=== PATIENT | female | born 1960 | race African-American/Black ===

== ENCOUNTER 2020-03-05 20:22 | Inpatient (IN) | payer MEDICARE, MEDICAID ==
[~2020-03-05] VITALS: Ht 165.1 cm; Wt 83.6 kg
--- NOTE | 2020-03-05 20:49 | PHYS DOC ---
General Adult HPI: HPI: Patient is a 59 year old [f__sex] who presents with [] Review of Systems: Review of Systems: Constitutional: Denies fever or chills. [] Eyes: Denies change in visual acuity. [] HENT: Denies nasal congestion or sore throat. [] Respiratory: Denies cough or shortness of breath. [] Cardiovascular: Denies chest pain or edema. [] GI: Denies abdominal pain, nausea, vomiting, bloody stools or diarrhea. [] : Denies dysuria. [] Musculoskeletal: Denies back pain or joint pain. [] Integument: Denies rash. [] Neurologic: Denies headache, focal weakness or sensory changes. [] Endocrine: Denies polyuria or polydipsia. [] Lymphatic: Denies swollen glands. [] Psychiatric: Denies depression or anxiety. [] Heart Score: Risk Factors: Risk Factors: DM, Current or recent (<one month) smoker, HTN, HLP, family history of CAD, obesity. Risk Scores: Score 0 - 3: 2.5% MACE over next 6 weeks - Discharge Home Score 4 - 6: 20.3% MACE over next 6 weeks - Admit for Clinical Observation Score 7 - 10: 72.7% MACE over next 6 weeks - Early Invasive Strategies Physical Exam: PE: Constitutional: Well developed, well nourished, no acute distress, non-toxic appearance. [] HENT: Normocephalic, atraumatic, bilateral external ears normal, oropharynx moist, no oral exudates, nose normal. [] Eyes: PERRLA, EOMI, conjunctiva normal, no discharge. [] Neck: Normal range of motion, no tenderness, supple, no stridor. [] Cardiovascular:Heart rate regular rhythm, no murmur [] Lungs & Thorax: Bilateral breath sounds clear to auscultation [] Abdomen: Bowel sounds normal, soft, no tenderness, no masses, no pulsatile masses. [] Skin: Warm, dry, no erythema, no rash. [] Back: No tenderness, no CVA tenderness. [] Extremities: No tenderness, no cyanosis, no clubbing, ROM intact, no edema. [] Neurologic: Alert and oriented X 3, normal motor function, normal sensory function, no focal deficits noted. [] Psychologic: Affect normal, judgement normal, mood normal. [] EKG: EKG: @ 2033 Normal sinus rhythm at [address] elevation or depression Normal T wave morphology QRS 80 ms QT 360 ms QTc 429 ms Radiology/Procedures: Radiology/Procedures: [] Course & Med Decision Making: Course & Med Decision Making Pertinent Labs and Imaging studies reviewed. (See chart for details) [] Dragon Disclaimer: Dragon Disclaimer: This electronic medical record was generated, in whole or in part, using a voice recognition dictation system. PREM SINGLETON DO Mar 05, 2020 20:49
[2020-03-05] MEDS ORDERED: DEXTROSE 50% 25 GM / 50ML DISP.SYRIN. IV PRN (21:45)
[2020-03-05] MEDS ORDERED: cloNIDine TTS-2 1 PATCH PATCH TD ONE (22:00)
--- NOTE | 2020-03-06 00:12 | RAD ---
EXAM: CHEST AP ONLY 03/05/2020 12:00 AM CLINICAL INDICATION: Cough COMPARISON: Chest radiograph 01/27/2020 TECHNIQUE: AP upright view of the chest FINDINGS: The cardiomediastinal silhouette is unchanged. A vascular stent is in the right subclavian region. The left hemidiaphragm is elevated, new from prior exam. No consolidation, pleural effusion, or pneumothorax. Pulmonary vascularity is normal. The thoracic skeleton is intact. IMPRESSION: No acute cardiopulmonary abnormality. Elevated left hemidiaphragm of unclear etiology. Electronically signed by: Lindsay Ospina MD (03/06/2020 12:10 AM) [id number]
[2020-03-06] MEDS ORDERED: cloNIDine HCL 0.1 MG TABLET PO ONE (03:30)
[2020-03-06] MEDS: INSULIN LISPRO 300 UNITS/3 ML VIAL. SQ SCH ×3 (09:23→17:00)
[2020-03-06] MEDS ORDERED: IV NORMAL SALINE 1000ML BAG 1,000 ML IV PRN ×2 (09:47)
[2020-03-06] MEDS ORDERED: DIALYSIS PATIENT. MC PRN ×2 (10:00)
[2020-03-06] MEDS ORDERED: ALBUMIN HUMAN 25% 200 ML IV PRN (10:00)
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
[2020-03-06] MEDS ORDERED: BISACODYL 10 MG SUPP.RECT. PR PRN (13:15)
[2020-03-06] MEDS ORDERED: ACETAMINOPHEN 325 MG TABLET. PO PRN (13:15)
[2020-03-06] MEDS ORDERED: ZOLPIDEM 5 MG TABLET. PO PRN (13:15)
[2020-03-06] MEDS ORDERED: MAGNESIUM HYDROXIDE 2,400 MG/30 ML ORAL.SUSP. PO PRN (13:15)
--- NOTE | 2020-03-06 13:15 | PDOC1 ---
History and Physical Date of Admission Date of Admission DATE: 03/06/20 TIME: 13:03 Identification/Chief Complaint Chief Complaint Refusing dialysis Source Source: Chart review, Patient History of Present Illness History of Present Illness Patient 59-year-old female with past medical history of end-stage renal disease on hemodialysis, who presents from her shelter because she has been refusing hemodialysis over the past 10 days. Patient is largely noncompliant and a poor historian, and much of the history was obtained from patient's daughter and chart review. Per patient's daughter, she is a resident of [facility], and then for the past 10 days patient has been refusing food, COVID testing, medication, and hemodialysis. She was sent to the ER for further evaluation. Upon arrival in the ER she continued to refuse our efforts to care for her, and including refusing blood draws. Upon evaluation the patient I did get her to agree to hemodialysis, but she states she wants to have dialysis "on her own terms ". After discussion with patient's daughter, patient's daughter confirms that patient has her own medical decision-making capacity. Upon discussion with ER staff and chart review, patient was recently treated at [facility] where she was again refusing hemodialysis. Further history cannot be obtained due to not cooperative patient. Past Medical History Past Medical History Unable to obtain due to uncooperative patient Past Surgical History Past Surgical History Unable to obtain due to uncooperative patient Family History Family History Unable to obtain due to uncooperative patient Social History Drugs: Other (Unable to obtain due to uncooperative patient) Current Medications Current Medications Current Medications Clonidine HCl (Catapres Tts-2) 1 patch 1X ONCE TD Last administered on 03/05/20at 21:47; Start 03/05/20 at 22:00; Stop 03/05/20 at 22:01; Status DC Insulin Human Lispro (HumaLOG) 0-5 UNITS TIDWMEALS SQ ; Start 03/06/20 at 08:00 Dextrose (Dextrose 50%-Water Syringe) 12.5 gm PRN Q15MIN PRN IV SEE COMMENTS; Start 03/05/20 at 21:45 Clonidine HCl (Catapres) 0.1 mg 1X ONCE PO Last administered on 03/06/20at 03:19; Start 03/06/20 at 03:30; Stop 03/06/20 at 03:31; Status DC Sodium Chloride 1,000 ml @ 1,000 mls/hr Q1H PRN IV hypotension; Start 03/06/20 at 09:47; Stop 03/06/20 at 15:46 Albumin Human 200 ml @ 200 mls/hr 1X PRN PRN IV Hypotension; Start 03/06/20 at 10:00; Stop 03/06/20 at 15:59 Sodium Chloride 1,000 ml @ 400 mls/hr Q2H30M PRN IV PATENCY; Start 03/06/20 at 09:47; Stop 03/06/20 at 21:46 Info (PHARMACY MONITORING -- do not chart) 1 each PRN DAILY PRN MC SEE COMMENTS; Start 03/06/20 at 10:00 Info (PHARMACY MONITORING -- do not chart) 1 each PRN DAILY PRN MC SEE COMMENTS; Start 03/06/20 at 10:00 Allergies Allergies: Coded Allergies: Sulfa (Sulfonamide Antibiotics) (Verified Allergy, Intermediate, 03/05/20) baclofen (Verified Allergy, Intermediate, 03/05/20) morphine (Verified Allergy, Intermediate, 03/05/20) ROS Review of System Unable to obtain due to uncooperative patient Physical Exam Physical Exam General: Alert, uncooperative, no acute distress HEENT: PERRLA, EOMI Lungs: Clear to auscultation, Normal air movement Heart: RRR, no murmurs Cardiovascular: S1, S2 Abdomen: Normal bowel sounds, Soft, No tenderness Extremities: No clubbing, No cyanosis Skin: No rashes, No significant lesion Neuro: Normal speech, Normal tone, Sensation intact Psych/Mental Status: Mental status NL, Mood NL Vitals Vitals Vital Signs Date Time Temp Pulse Resp B/P (MAP) Pulse Ox O2 Delivery O2 Flow Rate FiO2 03/06/20 07:52 85 16 95 03/06/20 03:19 219/156 03/05/20 20:22 Room Air Images Images EXAM: CHEST AP ONLY 03/05/2020 12:00 AM CLINICAL INDICATION: Cough COMPARISON: Chest radiograph 01/27/2020 TECHNIQUE: AP upright view of the chest FINDINGS: The cardiomediastinal silhouette is unchanged. A vascular stent is in the right subclavian region. The left hemidiaphragm is elevated, new from prior exam. No consolidation, pleural effusion, or pneumothorax. Pulmonary vascularity is normal. The thoracic skeleton is intact. IMPRESSION: No acute cardiopulmonary abnormality. Elevated left hemidiaphragm of unclear etiology. VTE Prophylaxis Ordered VTE Prophylaxis Devices: Yes VTE Pharmacological Prophylaxi: No Assessment/Plan Assessment/Plan End-stage renal disease on hemodialysis Patient noncompliance Plan: Consultation placed to nephrology. I have made several attempts to convince patient to proceed with hemodialysis, but she remains uncooperative and refusing all medical treatment. I discussed with patient's daughter who will call patient and attempt to convince her to allow us to proceed with medical treatment. Patient continues to be uncooperative and refusing medical treatment and blood draws, that I cannot effectively evaluate patient. Will consult psychiatry due to lack of insight and poor decision-making. FEN - renal diet PPX - Heparin FULL CODE Dispo - inpatient for above Justifications for Admission Other Justification ARIEL SINGLETARY MD Mar 06, 2020 13:15
[2020-03-06 14:44] VITALS: BP 192/74
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
--- NOTE | 2020-03-06 16:42 | PDOC1 ---
History & Psych Evaluation Date of Service: DOS: DATE: 03/06/20 TIME: 16:42 Source: Source: Caregiver, Chart review, Patient Identification: Identification She is a 59-year-old -[place]ian female with end-stage renal failure, on dialysis Chief Complaint: Chief Complaint Confusion, refusing for treatment and dialysis History of Present Illness: HPI: She is a 59-year-old -[place]ian female with end-stage renal disease on dialysis seen for initial psychiatric assessment. She is a resident of [facility] where she has been reportedly refusing for medications, COVID testing, food, and dialysis. She was sent to ER for assessment. She continues to be refusing for treatment, dialysis as recommended by physicians. Reportedly, she has refusing for treatment for the past 10 days. According to the chart review and discussion with nursing staff, patient has its own decision making capacity. She does not have any guardian or DURABLE POWER OF VISITOR SERVICES TECHNICIAN. She has a daughter and brother. Brother also came to hospital and tried to convince patient however patient refused. When seen, she appears irritable, angry, uncooperative, and difficult to engage in conversation. She was resistant to psychological exploration. Stating, she wants dialysis but her own terms whenever she wanted. She would not provide any reasonable rationale for refusing treatment and dialysis. When she was informed regarding the risks, benefits of dialysis, she appears to be refusing and not accepting. She was not able to verbalize back risk benefits. Apparently, she does not have any insight to her medical condition and situation. Denies depression or anxiety. Denies suicidal or homicidal thoughts. Denies auditory or visual hallucinations. Mental status is confused and disoriented, refused to participate in mental status examination and did not answer questions Past Psychiatric History: Past psychiatric history is not available due to patient factor. Patient is quite uncooperative. Past Medical History: Please see medical chart for details Family History: Family history is not available due to patient factor. Social History: Social History: She is a resident of [facility]. Further history is not available due to patient factor. Current Medications: Current Medications Current Medications Medications (Trade) Dose Ordered Sig/Marga Start Time Stop Time Status Last Admin Dose Admin Acetaminophen (Tylenol) 650 mg PRN Q6HRS PRN 03/06/20 13:15 Albumin Human 200 ml @ 200 mls/hr 1X PRN PRN 03/06/20 10:00 03/06/20 15:59 DC Bisacodyl (Dulcolax Supp) 10 mg PRN DAILY PRN 03/06/20 13:15 Clonidine HCl (Catapres Tts-2) 1 patch 1X ONCE 03/05/20 22:00 03/05/20 22:01 DC 03/05/20 21:47 1 PATCH Clonidine HCl (Catapres) 0.1 mg 1X ONCE 03/06/20 03:30 03/06/20 03:31 DC 03/06/20 03:19 0.1 MG Dextrose (Dextrose 50%-Water Syringe) 12.5 gm PRN Q15MIN PRN 03/05/20 21:45 Heparin Sodium (Porcine) (Heparin Sodium) 5,000 unit Q8HRS 03/06/20 22:00 Info (PHARMACY MONITORING -- do not chart) 1 each PRN DAILY PRN 03/06/20 10:00 Insulin Human Lispro (HumaLOG) 0-5 UNITS TIDWMEALS 03/06/20 08:00 Magnesium Hydroxide (Milk Of Magnesia) 2,400 mg PRN Q12HR PRN 03/06/20 13:15 Sodium Chloride 1,000 ml @ 400 mls/hr Q2H30M PRN 03/06/20 09:47 03/06/20 21:46 Zolpidem Tartrate (Ambien) 5 mg PRN QHS PRN 03/06/20 13:15 Allergies: Allergies: Coded Allergies: Sulfa (Sulfonamide Antibiotics) (Verified Allergy, Intermediate, 03/05/20) baclofen (Verified Allergy, Intermediate, 03/05/20) morphine (Verified Allergy, Intermediate, 03/05/20) Mental Status Examination: Mental Status Examination 59-year-old -Mal[place]ian female Irritable, uncooperative Disoriented Thought process disorganized Denies suicidal or homicidal thoughts Denies auditory or visual hallucinations No abnormal perception noted Mood is irritable Affect is dysthymic Insight is poor Judgment is poor Impulse control is poor Attention span and concentration impaired Recent and remote memory and impaired ROS: 14 point review of system is otherwise negative except for stated above Physical Exam: Refer to Physician's note. ACTIVATED SLUDGE ATTENDANT: No focal deficit MSK: No EPS, TDK, or abnormal involuntary movements Vitals: Vitals Vital Signs Date Time Temp Pulse Resp B/P (MAP) Pulse Ox O2 Delivery O2 Flow Rate FiO2 03/06/20 14:44 192/74 (113) 03/06/20 07:52 85 16 95 03/05/20 20:22 Room Air Diagnosis: Diagnosis: Acute delirium, likely multifactorial, hypoactive/hyperactive type. Uremic encephalopathy Patient is incapacitated to make clinical decisions. Assessment: -[place]ian female who appears to be in delirium, likely to uremia, lacks capacity to make critical decisions regarding her health care. During assessment she has not been able to show understanding of risks, benefits, alternatives of the treatment. She was not able to provide understanding of her refusal for treatment, rationale, or alternatives that she might be thinking of. Given her impaired attention, concentration, disorientation, her cognitive process appears to be impaired limiting her capacity to make reasonable decision. Plan: Haldol 2.5 mg every 6 hours for agitation and confusion. Monitor for confusion and agitation. Monitor for safety. Patient needs to be reassessed for capacity as capacity is fluctuating process. ROSALINO BURR MD Mar 06, 2020 16:42
[2020-03-06] MEDS ORDERED: ALLO100T PO (18:40)
[2020-03-06] MEDS ORDERED: HYDR100T24 PO (18:40)
[2020-03-06] MEDS ORDERED: ASPI-630 PO (18:40)
[2020-03-06] MEDS ORDERED: ATOR40TA59 PO (18:40)
[2020-03-06] MEDS ORDERED: FURO80TA3 PO (18:40)
[2020-03-06] MEDS ORDERED: OXYC5CAP PO (18:40)
[2020-03-06] MEDS ORDERED: ERGO500027 PO (18:40)
[2020-03-06] MEDS ORDERED: PANT40TA77 PO (18:40)
[2020-03-06] MEDS ORDERED: OLAN5TAB3 PO (18:40)
[2020-03-06] MEDS ORDERED: LEVO75TA5 PO (18:40)
[2020-03-06] MEDS ORDERED: SEVE800T9 PO (18:40)
[2020-03-06] MEDS ORDERED: LEVE500T6 PO ×2 (18:40)
[2020-03-06] MEDS ORDERED: VIT1TABL71 PO (18:40)
[2020-03-06] MEDS ORDERED: AMLO-187 PO (18:40)
[2020-03-06] MEDS ORDERED: ONDA4TAB7 PO (18:42)
[2020-03-06 19:00] VITALS: BP 189/76
[2020-03-06] MEDS ORDERED: oxyCODONE IR 5 MG TABLET PO PRN (19:15)
[2020-03-06] MEDS ORDERED: ONDANSETRON ODT 4 MG TAB.RAPDIS. PO PRN (19:15)
[2020-03-06] MEDS ORDERED: levETIRAcetam 250 MG TABLET PO SCH (19:30)
[2020-03-06] MEDS: ASPIRIN CHEWABLE 81 MG TABLET. PO SCH (20:20)
[2020-03-06] MEDS: PANTOPRAZOLE 40 MG TABLET.DR. PO SCH (20:20)
[2020-03-06] MEDS: SEVELAMER CARBONATE 800 MG TABLET. PO SCH (20:20)
[2020-03-06] MEDS: FUROSEMIDE 80 MG TABLET. PO SCH (20:20)
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
[2020-03-06 20:30] VITALS: BP 220/86
[2020-03-06] MEDS: OLANZapine 5 MG TABLET PO SCH (21:00)
[2020-03-06] MEDS: levETIRAcetam 500 MG TABLET PO SCH (21:00)
[2020-03-06] MEDS ORDERED: ATORVASTATIN CALCIUM 40 MG TABLET. PO SCH (21:00)
[2020-03-06] MEDS: amLODIPine BESYLATE 10 MG TABLET PO SCH (21:00)
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
[2020-03-06] MEDS: HEPARIN for SUB-Q USE 5,000 UNIT/ML VIAL. SQ SCH (22:00)
[2020-03-06 23:00] VITALS: BP 182/73
[2020-03-07 03:00] VITALS: BP 172/77
[2020-03-07] MEDS: HEPARIN for SUB-Q USE 5,000 UNIT/ML VIAL. SQ SCH ×2 (06:00→14:00)
[2020-03-07] MEDS: PANTOPRAZOLE 40 MG TABLET.DR. PO SCH (07:30)
[2020-03-07] MEDS ORDERED: LEVOTHYROXINE 75 MCG TABLET PO SCH (07:30)
[2020-03-07] MEDS: SEVELAMER CARBONATE 800 MG TABLET. PO SCH ×3 (07:57→17:00)
[2020-03-07] MEDS: FUROSEMIDE 80 MG TABLET. PO SCH ×2 (07:58→14:00)
[2020-03-07] MEDS: levETIRAcetam 500 MG TABLET PO SCH (07:58)
[2020-03-07] MEDS: INSULIN LISPRO 300 UNITS/3 ML VIAL. SQ SCH ×3 (07:58→17:00)
[2020-03-07] MEDS: OLANZapine 5 MG TABLET PO SCH (07:59)
--- NOTE | 2020-03-07 08:03 | NUR ---
Patient refusing blood sugar and blood pressure checks. Patient refusing medication except 3, patient explained that RN would have to get Order from to give BP medication with out knowing BP. Will continue to monitor.
[2020-03-07] MEDS ORDERED: FOLIC/VIT B COMP W-C (RENAL) TABLET. PO SCH (09:00)
[2020-03-07] MEDS ORDERED: ALLOPURINOL 100 MG TABLET. PO SCH (09:00)
[2020-03-07] MEDS: ASPIRIN CHEWABLE 81 MG TABLET. PO SCH (09:00)
[2020-03-07] MEDS: amLODIPine BESYLATE 10 MG TABLET PO SCH (09:00)
[2020-03-07] MEDS ORDERED: IV NORMAL SALINE 1000ML BAG 1,000 ML IV PRN ×2 (10:37)
[2020-03-07] MEDS ORDERED: DIALYSIS PATIENT. MC PRN (10:45)
[2020-03-07] MEDS ORDERED: diphenhydrAMINE 50 MG/ML VIAL IV PRN ×2 (10:45)
[2020-03-07] MEDS ORDERED: ACETAMINOPHEN 500 MG TABLET PO PRN (10:45)
[2020-03-07] MEDS ORDERED: ALBUMIN HUMAN 25% 200 ML IV PRN (10:45)
--- NOTE | 2020-03-07 12:19 | PDOC ---
[employer] PROGRESS NOTE Date of Service DOS: DATE: 03/07/20 TIME: 12:09 Chief Complaint Chief Complaint ESRD with missed dialysis Noncompliant pt Consulted nephrology History of Present Illness History of Present Illness 03/07/2020 Pt seen and examined Consulted nephrology Pt noncompliant with staff and dialysis DW RN MONA case management Vitals/I&O Vitals/I&O: Vital Signs Date Time Temp Pulse Resp B/P (MAP) Pulse Ox O2 Delivery O2 Flow Rate FiO2 03/07/20 03:00 98.1 81 17 172/77 (108) 95 98.1 03/06/20 23:00 Room Air I & O 03/06/20 03/06/20 03/07/20 15:00 23:00 07:00 Output Total 350 ml Balance -350 ml Physical Exam General: Alert, No acute distress Abdomen: Soft Extremities: No clubbing, No cyanosis Skin: No rashes Review of Systems Review of Systems: Denies CP Denies ABD pain Assessment and Plan Assessmemt and Plan Assessment: ESRD and missed dialysis Noncompliant pt Plan: Consulted nephrology Hemodialysis today Discharge disposition pending Full code DVT prophylaxis Comment Review of Relevant I have reviewed the following items tito (where applicable) has been applied. Medications: Current Medications Medications (Trade) Dose Ordered Sig/Marga Route PRN Reason Start Time Stop Time Status Last Admin Dose Admin Amlodipine Besylate (Norvasc) 10 mg DAILY PO 03/06/20 19:30 03/06/20 21:00 Hydralazine HCl (Apresoline) 100 mg TID PO 03/06/20 21:00 03/06/20 21:20 Justifications for Admission Other Justification End-stage renal disease on hemodialysis OSIRIS WISE III DO Mar 07, 2020 12:19
--- NOTE | 2020-03-07 12:26 | SNU/HH DC ---
DISCHARGE ORDERS DISCHARGE INFORMATION: CONDITION ON DISCHARGE: Stable CODE STATUS: Code Status: Full NURSING HOME: SNF STAY <30 DAYS: No HOSPICE: HOSPICE: No HOSPICE EVAL & TREAT: No LTAC: ADMIT TO LTAC: No POST DISCHARGE ORDERS: ACTIVITY ORDERS: Activity as tolerated DIET AFTER DISCHARGE: Cardiac DISCHARGE MEDICATIONS: Home Meds Reported Medications Ondansetron Hcl (ZOFRAN) 4 Mg Tablet, 4 MG PO PRN Q8HRS PRN for NAUSEA/VOMITING, TAB 03/06/20 Oxycodone Hcl (OXYCODONE HCL) 5 Mg Capsule, 5 MG PO PRN Q6HRS PRN for PAIN, TAB 0 Refills 03/06/20 Sevelamer Carbonate (RENVELA) 800 Mg Tablet, 2400 MG PO TIDWMEALS for RENAL DISEASE, TAB 03/06/20 Hydralazine Hcl (HYDRALAZINE HCL) 100 Mg Tablet, 100 MG PO TID for HYPERTENSION, TAB 03/06/20 Olanzapine (ZYPREXA) 5 Mg Tablet, 5 MG PO BID for PSYCHOSIS, TAB 03/06/20 Levetiracetam (LEVETIRACETAM) 500 Mg Tablet, 500 MG PO BID for SEIZURES, TAB 03/06/20 Furosemide (FUROSEMIDE) 80 Mg Tablet, 80 MG PO BID for , TAB 03/06/20 Vit B Cmplx 3/Fa/Vit C/Biotin (IDA-JOSÉ MANUEL RX TABLET) 1 Each Tablet, 1 TAB PO DAILY for for 30 Days, #30 TAB 0 Refills 03/06/20 Pantoprazole Sodium (PROTONIX ) 40 Mg Tablet.dr, 40 MG PO DAILYAC for GERD, TAB 03/06/20 Levothyroxine Sodium (LEVOTHYROXINE SODIUM) 75 Mcg Tablet, 75 MCG PO DAILYAC for THYROID SUPPLEMENT, #30 TAB 0 Refills 03/06/20 Levetiracetam (LEVETIRACETAM) 500 Mg Tablet, 250 MG PO QMWF for SEIZURES, TAB 03/06/20 Ergocalciferol (Vitamin D2) (Vitamin D2) 1,250 Mcg Capsule, 1250 MCG PO QFR for SUPPLEMENT, CAP 03/06/20 Atorvastatin Calcium (ATORVASTATIN CALCIUM) 40 Mg Tablet, 40 MG PO HS for FOR CHOLESTEROL, #30 TAB 0 Refills 03/06/20 Aspirin (ASPIRIN) 81 Mg Tab.chew, 81 MG PO DAILY for , TAB.CHEW 03/06/20 Amlodipine Besylate (AMLODIPINE BESYLATE) 10 Mg Tablet, 10 MG PO DAILY for HYPERTENSION, TAB 03/06/20 Allopurinol (ALLOPURINOL) 100 Mg Tablet, 100 MG PO DAILY for GOUT, TAB 03/06/20 OSIRIS WISE III DO Mar 07, 2020 12:26
--- NOTE | 2020-03-07 12:26 | SNU/HH DC ---
DISCHARGE ORDERS DISCHARGE INFORMATION: CONDITION ON DISCHARGE: Stable CODE STATUS: Code Status: Full CORRECTION: SNF STAY <30 DAYS: Yes HOSPICE: HOSPICE: No HOSPICE EVAL & TREAT: No LTAC: ADMIT TO LTAC: No POST DISCHARGE ORDERS: ACTIVITY ORDERS: Activity as tolerated DIET AFTER DISCHARGE: Cardiac TREATMENT/EQUIPMENT ORDERS: Physical Therapy For: Evalulation/Treatment Occupational Therapy For: Evaluation/Treatment DISCHARGE MEDICATIONS: Home Meds Reported Medications Ondansetron Hcl (ZOFRAN) 4 Mg Tablet, 4 MG PO PRN Q8HRS PRN for NAUSEA/VOMITING, TAB 03/06/20 Oxycodone Hcl (OXYCODONE HCL) 5 Mg Capsule, 5 MG PO PRN Q6HRS PRN for PAIN, TAB 0 Refills 03/06/20 Sevelamer Carbonate (RENVELA) 800 Mg Tablet, 2400 MG PO TIDWMEALS for RENAL DISEASE, TAB 03/06/20 Hydralazine Hcl (HYDRALAZINE HCL) 100 Mg Tablet, 100 MG PO TID for HYPERTENSION, TAB 03/06/20 Olanzapine (ZYPREXA) 5 Mg Tablet, 5 MG PO BID for PSYCHOSIS, TAB 03/06/20 Levetiracetam (LEVETIRACETAM) 500 Mg Tablet, 500 MG PO BID for SEIZURES, TAB 03/06/20 Furosemide (FUROSEMIDE) 80 Mg Tablet, 80 MG PO BID for , TAB 03/06/20 Vit B Cmplx 3/Fa/Vit C/Biotin (IDA-JOSÉ MANUEL RX TABLET) 1 Each Tablet, 1 TAB PO DAILY for for 30 Days, #30 TAB 0 Refills 03/06/20 Pantoprazole Sodium (PROTONIX ) 40 Mg Tablet.dr, 40 MG PO DAILYAC for GERD, TAB 03/06/20 Levothyroxine Sodium (LEVOTHYROXINE SODIUM) 75 Mcg Tablet, 75 MCG PO DAILYAC for THYROID SUPPLEMENT, #30 TAB 0 Refills 03/06/20 Levetiracetam (LEVETIRACETAM) 500 Mg Tablet, 250 MG PO QMWF for SEIZURES, TAB 03/06/20 Ergocalciferol (Vitamin D2) (Vitamin D2) 1,250 Mcg Capsule, 1250 MCG PO QFR for SUPPLEMENT, CAP 03/06/20 Atorvastatin Calcium (ATORVASTATIN CALCIUM) 40 Mg Tablet, 40 MG PO HS for FOR CHOLESTEROL, #30 TAB 0 Refills 03/06/20 Aspirin (ASPIRIN) 81 Mg Tab.chew, 81 MG PO DAILY for , TAB.CHEW 03/06/20 Amlodipine Besylate (AMLODIPINE BESYLATE) 10 Mg Tablet, 10 MG PO DAILY for HYPE RTENSION, TAB 03/06/20 Allopurinol (ALLOPURINOL) 100 Mg Tablet, 100 MG PO DAILY for GOUT, TAB 03/06/20 OSIRIS WISE III DO Mar 07, 2020 12:26
[2020-03-07 12:50] LABS: BASO % 1 % (0-3); EOS # 0.1 x10^3/uL (0.0-0.7); EOS % 2 % (0-3); HEMATOCRIT 30.1 % (36.0-47.0); HEMOGLOBIN 9.7 g/dL (12.0-15.5); LYMPH # 1.5 x10^3/uL (1.0-4.8); LYMPH % 33 % (24-48); MEAN CORPUSCULAR HEMOGLOBIN 24 pg (25-35); MEAN CORPUSCULAR HGB CONC 32 g/dL (31-37); MEAN CORPUSCULAR VOLUME 75 fL (79-100); MONO # 0.3 x10^3/uL (0.0-1.1); MONO % 7 % (0-9); NEUT # 2.7 x10^3/uL (1.8-7.7); NEUT % 58 % (31-73); PLATELET COUNT 232 x10^3/uL (140-400); RED BLOOD COUNT 3.98 x10^6/uL (3.50-5.40); RED CELL DISTRIBUTION WIDTH 15.4 % (11.5-14.5); WHITE BLOOD COUNT 4.7 x10^3/uL (4.0-11.0)
--- NOTE | 2020-03-07 16:19 | PDOC2 ---
CONSULT Date of Consult Date of Consult DATE: 03/07/20 TIME: 16:13 Reason for Consult Reason for Consult: ESRD Referring Physician Referring Physician: MARBELLA Identification/Chief Complaint Chief Complaint NO HD Source Source: Chart review, Patient History of Present Illness Reason for Visit: THIS IS A 59 YR OLD WITH ESRD AND ON HD. HAS BEEN REFUSING HD FOR MORE THAN A WEEK AND IS VERY NON COMPLIANT. WILL NOT TAKE MEDS, WILL NOT GO TO HD AND WILL NOT ALLOW LABS. PT HAS HAD THIS ISSUE FOR SOMETIME. SHE DID SIMILAR WHILE AT [facility]. HAS PSYCH HX. PSYCH EVAL ONGOING Past Medical History Cardiovascular: HTN GI: Constipation Psych: Psychosis Renal/: Chronic renal failure Endocrine: Hyperparathyroidism Past Surgical History Past Surgical History RIGHT ARM AVF. Family History Family History FATHER HAS HTH RELATED ESRD. Social History No ALCOHOL: none Drugs: Other (Unable to obtain due to uncooperative patient) Lives: with Family Current Medications Current Medications Current Medications Clonidine HCl (Catapres Tts-2) 1 patch 1X ONCE TD Last administered on 03/05/20at 21:47; Start 03/05/20 at 22:00; Stop 03/05/20 at 22:01; Status DC Insulin Human Lispro (HumaLOG) 0-5 UNITS TIDWMEALS SQ ; Start 03/06/20 at 08:00 Dextrose (Dextrose 50%-Water Syringe) 12.5 gm PRN Q15MIN PRN IV SEE COMMENTS; Start 03/05/20 at 21:45 Clonidine HCl (Catapres) 0.1 mg 1X ONCE PO Last administered on 03/06/20at 03:19; Start 03/06/20 at 03:30; Stop 03/06/20 at 03:31; Status DC Sodium Chloride 1,000 ml @ 1,000 mls/hr Q1H PRN IV hypotension; Start 03/06/20 at 09:47; Stop 03/06/20 at 15:46; Status DC Albumin Human 200 ml @ 200 mls/hr 1X PRN PRN IV Hypotension; Start 03/06/20 at 10:00; Stop 03/06/20 at 15:59; Status DC Sodium Chloride 1,000 ml @ 400 mls/hr Q2H30M PRN IV PATENCY; Start 03/06/20 at 09:47; Stop 03/06/20 at 21:46; Status DC Info (PHARMACY MONITORING -- do not chart) 1 each PRN DAILY PRN MC SEE COMMENTS; Start 03/06/20 at 10:00 Info (PHARMACY MONITORING -- do not chart) 1 each PRN DAILY PRN MC SEE COMMENTS; Start 03/06/20 at 10:00 Zolpidem Tartrate (Ambien) 5 mg PRN QHS PRN PO INSOMNIA, MAY REPEAT IN 1HR; Start 03/06/20 at 13:15 Acetaminophen (Tylenol) 650 mg PRN Q6HRS PRN PO Headaches, Temp > 101.5F; Start 03/06/20 at 13:15 Magnesium Hydroxide (Milk Of Magnesia) 2,400 mg PRN Q12HR PRN PO CONSTIPATION; Start 03/06/20 at 13:15 Bisacodyl (Dulcolax Supp) 10 mg PRN DAILY PRN [place] CONSTIPATION; Start 03/06/20 at 13:15 Heparin Sodium (Porcine) (Heparin Sodium) 5,000 unit Q8HRS SQ ; Start 03/06/20 at 22:00 Allopurinol (Zyloprim) 100 mg DAILY PO ; Start 03/07/20 at 09:00 Amlodipine Besylate (Norvasc) 10 mg DAILY PO Last administered on 03/06/20at 21:00; Start 03/06/20 at 19:30 Aspirin (Aspirin Chewable) 81 mg DAILY PO ; Start 03/06/20 at 19:30 Atorvastatin Calcium (Lipitor) 40 mg HS PO ; Start 03/06/20 at 21:00 Furosemide (Lasix) 80 mg BID92 PO ; Start 03/06/20 at 19:30 Levetiracetam (Keppra) 250 mg QMWF PO ; Start 03/06/20 at 19:30 Levetiracetam (Keppra) 500 mg BID PO ; Start 03/06/20 at 21:00 Levothyroxine Sodium (Synthroid) 75 mcg DAILYAC PO ; Start 03/07/20 at 07:30 Olanzapine (ZyPREXA) 5 mg BID PO ; Start 03/06/20 at 21:00 Pantoprazole Sodium (Protonix) 40 mg DAILYAC PO ; Start 03/06/20 at 19:30 Sevelamer Carbonate (Renvela) 2,400 mg TIDWMEALS PO ; Start 03/06/20 at 19:30 Hydralazine HCl (Apresoline) 100 mg TID PO Last administered on 03/06/20at 21:20; Start 03/06/20 at 21:00 Ondansetron HCl (Zofran Odt) 4 mg PRN Q8HRS PRN PO NAUSEA/VOMITING; Start 03/06/20 at 19:15 Oxycodone HCl (Roxicodone) 5 mg PRN Q6HRS PRN PO PAIN; Start 03/06/20 at 19:15 Vitamin B Complex/ Vitamin C (Niecy-Dawood) 1 tab DAILY PO ; Start 03/07/20 at 09:00 Sodium Chloride 1,000 ml @ 1,000 mls/hr Q1H PRN IV hypotension; Start 03/07/20 at 10:37; Stop 03/07/20 at 16:36 Albumin Human 200 ml @ 200 mls/hr 1X PRN PRN IV Hypotension; Start 03/07/20 at 10:45; Stop 03/07/20 at 16:44 Acetaminophen (Tylenol) 500 mg 1X PRN PRN PO MILD PAIN / TEMP > 100.3'F; Start 03/07/20 at 10:45; Stop 03/08/20 at 10:44 Diphenhydramine HCl (Benadryl) 25 mg 1X PRN PRN IV ITCHING; Start 03/07/20 at 10:45; Stop 03/08/20 at 10:44 Diphenhydramine HCl (Benadryl) 25 mg 1X PRN PRN IV ITCHING; Start 03/07/20 at 10:45; Stop 03/08/20 at 10:44 Sodium Chloride 1,000 ml @ 400 mls/hr Q2H30M PRN IV PATENCY; Start 03/07/20 at 10:37; Stop 03/07/20 at 22:36 Info (PHARMACY MONITORING -- do not chart) 1 each PRN DAILY PRN MC SEE COMMENTS; Start 03/07/20 at 10:45; Status UNV Active Scripts Active Reported Zofran (Ondansetron Hcl) 4 Mg Tablet 4 Mg PO PRN Q8HRS PRN Oxycodone Hcl 5 Mg Capsule 5 Mg PO PRN Q6HRS PRN Renvela (Sevelamer Carbonate) 800 Mg Tablet 2,400 Mg PO TIDWMEALS Hydralazine Hcl 100 Mg Tablet 100 Mg PO TID Zyprexa (Olanzapine) 5 Mg Tablet 5 Mg PO BID Levetiracetam 500 Mg Tablet 500 Mg PO BID Furosemide 80 Mg Tablet 80 Mg PO BID Niecy-Dawood Rx Tablet (Vit B Cmplx 3/Fa/Vit C/Biotin) 1 Each Tablet 1 Tab PO DAILY 30 Days Protonix (Pantoprazole Sodium) 40 Mg Tablet.dr 40 Mg PO DAILYAC Levothyroxine Sodium 75 Mcg Tablet 75 Mcg PO DAILYAC Levetiracetam 500 Mg Tablet 250 Mg PO QMWF Vitamin D2 (Ergocalciferol (Vitamin D2)) 1,250 Mcg Capsule 1,250 Mcg PO QFR Atorvastatin Calcium 40 Mg Tablet 40 Mg PO HS Aspirin 81 Mg Tab.chew 81 Mg PO DAILY Amlodipine Besylate 10 Mg Tablet 10 Mg PO DAILY Allopurinol 100 Mg Tablet 100 Mg PO DAILY Allergies Allergies: Coded Allergies: Sulfa (Sulfonamide Antibiotics) (Verified Allergy, Intermediate, 03/05/20) baclofen (Verified Allergy, Intermediate, 03/05/20) morphine (Verified Allergy, Intermediate, 03/05/20) ROS Review of System NOT COOPERATIVE. UNABLE TO OBTAIN. Physical Exam Physical Exam AVF WITH GOOD THRILL AND BRUIT. General: Alert, No acute distress HEENT: Atraumatic, PERRLA Lungs: Clear to auscultation Heart: Regular rate Abdomen: Normal bowel sounds, Soft, No tenderness Extremities: No cyanosis Skin: No breakdown Neuro: Normal speech Psych/Mental Status: Other (NOT COOPERATIVE) MUSCULOSKELETAL: No deformity Vitals VITALS Vital Signs Date Time Temp Pulse Resp B/P (MAP) Pulse Ox O2 Delivery O2 Flow Rate FiO2 03/07/20 03:00 98.1 81 17 172/77 (108) 95 98.1 03/06/20 23:00 Room Air Labs Labs Laboratory Tests Test 03/07/20 12:15 White Blood Count 4.7 x10^3/uL (4.0-11.0) Red Blood Count 3.98 x10^6/uL (3.50-5.40) Hemoglobin 9.7 g/dL (12.0-15.5) Hematocrit 30.1 % (36.0-47.0) Mean Corpuscular Volume 75 fL (79-100) Mean Corpuscular Hemoglobin 24 pg (25-35) Mean Corpuscular Hemoglobin Concent 32 g/dL (31-37) Red Cell Distribution Width 15.4 % (11.5-14.5) Platelet Count 232 x10^3/uL (140-400) Neutrophils (%) (Auto) 58 % (31-73) Lymphocytes (%) (Auto) 33 % (24-48) Monocytes (%) (Auto) 7 % (0-9) Eosinophils (%) (Auto) 2 % (0-3) Basophils (%) (Auto) 1 % (0-3) Neutrophils # (Auto) 2.7 x10^3/uL (1.8-7.7) Lymphocytes # (Auto) 1.5 x10^3/uL (1.0-4.8) Monocytes # (Auto) 0.3 x10^3/uL (0.0-1.1) Eosinophils # (Auto) 0.1 x10^3/uL (0.0-0.7) Basophils # (Auto) 0.0 x10^3/uL (0.0-0.2) Phosphorus Level 9.6 mg/dL (2.6-4.7) Albumin 3.8 g/dL (3.4-5.0) Laboratory Tests Test 03/07/20 12:15 White Blood Count 4.7 x10^3/uL (4.0-11.0) Red Blood Count 3.98 x10^6/uL (3.50-5.40) Hemoglobin 9.7 g/dL (12.0-15.5) Hematocrit 30.1 % (36.0-47.0) Mean Corpuscular Volume 75 fL (79-100) Mean Corpuscular Hemoglobin 24 pg (25-35) Mean Corpuscular Hemoglobin Concent 32 g/dL (31-37) Red Cell Distribution Width 15.4 % (11.5-14.5) Platelet Count 232 x10^3/uL (140-400) Neutrophils (%) (Auto) 58 % (31-73) Lymphocytes (%) (Auto) 33 % (24-48) Monocytes (%) (Auto) 7 % (0-9) Eosinophils (%) (Auto) 2 % (0-3) Basophils (%) (Auto) 1 % (0-3) Neutrophils # (Auto) 2.7 x10^3/uL (1.8-7.7) Lymphocytes # (Auto) 1.5 x10^3/uL (1.0-4.8) Monocytes # (Auto) 0.3 x10^3/uL (0.0-1.1) Eosinophils # (Auto) 0.1 x10^3/uL (0.0-0.7) Basophils # (Auto) 0.0 x10^3/uL (0.0-0.2) Phosphorus Level 9.6 mg/dL (2.6-4.7) Albumin 3.8 g/dL (3.4-5.0) Assessment/Plan Assessment/Plan IMP ESRD ANEMIA HTN NON COMPLIANCE PSYCHOSIS PLAN PSYCH EVAL ENC COMPLIANCE ARANESP HD TODAY UF TO DW WILL FOLLOW SARAH MELCHOR MD Mar 07, 2020 16:19
== END 2020-03-07 17:45 | DRG 682 ==
LOC: ER 20:22 → ED HOLD 03-06 04:53 → 4 NORTH 03-06 18:14
PROVIDERS: ADMIT Family Medicine; ATTEND Family Medicine
PROC: 5A1D70Z Performance of Urinary Filtration, Intermittent, Less than 6 Hours Per Day (ICD-10-PCS; principal; 2020-03-07)
DX: I12.0 Hypertensive chronic kidney disease with stage 5 chronic kidney disease or end stage renal disease (principal); N18.6 End stage renal disease; F05 Delirium due to known physiological condition; G93.49 Other encephalopathy; D64.9 Anemia, unspecified; E21.3 Hyperparathyroidism, unspecified; Z91.15 Patient's noncompliance with renal dialysis; Z91.19 Patient's noncompliance with other medical treatment and regimen; Z99.2 Dependence on renal dialysis; Z88.5 Allergy status to narcotic agent; Z88.2 Allergy status to sulfonamides; Z88.8 Allergy status to other drugs, medicaments and biological substances
CPT/HCPCS: 36415; 71045; 82040; 84100; 85025; 99285; J1815; G0378

== ENCOUNTER 2020-09-19 00:56 | Emergency (ER) | payer MEDICARE, MEDICAID ==
[~2020-09-19] VITALS: Ht 157.5 cm; Wt 114.9 kg
[~2020-09-19 00:56] MED LIST: ALLO100T PO; AMLO-187 PO; ASPI-630 PO; ATOR40TA59 PO; ERGO500027 PO; FURO80TA3 PO; HYDR100T24 PO; LEVE500T6 PO; LEVO75TA5 PO; OLAN5TAB3 PO; ONDA4TAB7 PO; OXYC5CAP PO; PANT40TA77 PO; SEVE800T9 PO; VIT1TABL71 PO
[2020-09-19 01:21] VITALS: BP 150/68
--- NOTE | 2020-09-19 01:42 | PHYS DOC ---
Past Medical History Past Medical History: CVA, Hypertension, Renal Failure Additional Past Medical Histor: right hemiplegia Past Surgical History: Other Additional Past Surgical Histo: AV fistula Smoking Status: Unknown if ever smoked Alcohol Use: None Drug Use: None General Adult EDM: Chief Complaint: OTHER COMPLAINTS HPI: HPI: Patient is a 59 year old female who was brought here by EMS from the alf for evaluation of a bleeding from herAVfistula. Patient had end-stage renal failure, on hemodialysis. senior care sent her here for evaluation because of after dialysis today she had she still has oozing blood coming out from the site of insertion on her AV fistula. Patient did not want EMS to take her to [place] however [facility] diverted her here. Patient went to be taken to [facility] however was on high volume. Initially when patient got here she refused to be evaluated. After the charge nurse discussed with her patient allowed her to proceed with the evaluation. Patient said the bleeding has stopped .already Review of Systems: Review of Systems: Constitutional: Denies fever or chills. [] Eyes: Denies change in visual acuity. [] HENT: Denies nasal congestion or sore throat. [] Respiratory: Denies cough or shortness of breath. [] Cardiovascular: Denies chest pain or edema. [] GI: Denies abdominal pain, nausea, vomiting, bloody stools or diarrhea. [] : Denies dysuria. [] Musculoskeletal: Denies back pain or joint pain. [] Integument: Denies rash. [] Neurologic: Denies headache, focal weakness or sensory changes. [] Endocrine: Denies polyuria or polydipsia. [] Lymphatic: Denies swollen glands. [] Psychiatric: Denies depression or anxiety. [] Heart Score: C/O Chest Pain: N/A Risk Factors: Risk Factors: DM, Current or recent (<one month) smoker, HTN, HLP, family history of CAD, obesity. Risk Scores: Score 0 - 3: 2.5% MACE over next 6 weeks - Discharge Home Score 4 - 6: 20.3% MACE over next 6 weeks - Admit for Clinical Observation Score 7 - 10: 72.7% MACE over next 6 weeks - Early Invasive Strategies Allergies: Allergies: Allergies Coded Allergies Type Severity Reaction Last Updated Verified Sulfa (Sulfonamide Antibiotics) Allergy Intermediate 03/05/20 Yes baclofen Allergy Intermediate 03/05/20 Yes morphine Allergy Intermediate 03/05/20 Yes Physical Exam: PE: Constitutional: Well developed, well nourished, no acute distress, non-toxic bart earance. [] HENT: Normocephalic, atraumatic, bilateral external ears normal, oropharynx moist, no oral exudates, nose normal. [] Eyes: PERRLA, EOMI, conjunctiva normal, no discharge. [] Neck: Normal range of motion, no tenderness, supple, no stridor. [] Cardiovascular:Heart rate regular rhythm, no murmur [] Lungs & Thorax: Bilateral breath sounds clear to auscultation [] Abdomen: Bowel sounds normal, soft, no tenderness, no masses, no pulsatile masses. [] Skin: Warm, dry, no erythema, no rash. [] Back: No tenderness, no CVA tenderness. [] Extremities: No tenderness, no cyanosis, AV fistula on right arm with strong bruit and thrill, no active bleeding noted. Neurologic: Alert and oriented X 3,RIGHT SIDE CONTRACTURE (CHRONIC) Psychologic: Affect normal, judgement normal, mood normal. [] EKG: EKG: [] Radiology/Procedures: Radiology/Procedures: [] Course & Med Decision Making: Course & Med Decision Making Pertinent Labs and Imaging studies reviewed. (See chart for details) [] Dragon Disclaimer: Dragon Disclaimer: This electronic medical record was generated, in whole or in part, using a voice recognition dictation system. Departure Departure Impression: Primary Impression: Bleeding from dialysis shunt Disposition: HOME / SELF CARE / HOMELESS Condition: STABLE Referrals: MACO SANTIAGO DO (PCP) Follow up with your doctor as needed Patient Instructions: AV Fistula, Care After LUCHO RICE DO Sep 19, 2020 01:42
== END 2020-09-19 02:40 | disposition home or self-care (01) ==
LOC: ER 00:56
DX: T82.838A Hemorrhage due to vascular prosthetic devices, implants and grafts, initial encounter (principal); I10 Essential (primary) hypertension; N18.6 End stage renal disease; Z86.73 Personal history of transient ischemic attack (TIA), and cerebral infarction without residual deficits; Z98.890 Other specified postprocedural states; Z88.2 Allergy status to sulfonamides; Z88.6 Allergy status to analgesic agent; Z88.8 Allergy status to other drugs, medicaments and biological substances; X58.XXXA Exposure to other specified factors, initial encounter; Y93.89 Activity, other specified; Y92.89 Other specified places as the place of occurrence of the external cause; Y99.8 Other external cause status
CPT/HCPCS: 99284

== ENCOUNTER 2020-10-28 22:10 | Emergency (ER) | payer MEDICARE, MEDICAID ==
[~2020-10-28] VITALS: Ht 160 cm; Wt 59.1 kg
[~2020-10-28 22:10] MED LIST changes: -ERGO500027 PO; +ERGO500089 PO
[2020-10-28] MEDS ORDERED: fentaNYL PF VIAL 100 MCG/2 ML VIAL IM ONE (23:45)
--- NOTE | 2020-10-29 00:04 | PHYS DOC ---
Past Medical History Past Medical History: CVA, Hypertension, Renal Failure Additional Past Medical Histor: right hemiplegia Past Surgical History: Other Additional Past Surgical Histo: AV fistula Smoking Status: Unknown if ever smoked Alcohol Use: None Drug Use: None General Adult EDM: Chief Complaint: MULTIPLE COMPLAINTS HPI: HPI: Patient is a 60 year old [f__sex] who presents with [] Review of Systems: Review of Systems: Constitutional: Denies fever or chills. [] Eyes: Denies change in visual acuity. [] HENT: Denies nasal congestion or sore throat. [] Respiratory: Denies cough or shortness of breath. [] Cardiovascular: Denies chest pain or edema. [] GI: Denies abdominal pain, nausea, vomiting, bloody stools or diarrhea. [] : Denies dysuria. [] Musculoskeletal: Denies back pain or joint pain. [] Integument: Denies rash. [] Neurologic: Denies headache, focal weakness or sensory changes. [] Endocrine: Denies polyuria or polydipsia. [] Lymphatic: Denies swollen glands. [] Psychiatric: Denies depression or anxiety. [] Heart Score: Risk Factors: Risk Factors: DM, Current or recent (<one month) smoker, HTN, HLP, family history of CAD, obesity. Risk Scores: Score 0 - 3: 2.5% MACE over next 6 weeks - Discharge Home Score 4 - 6: 20.3% MACE over next 6 weeks - Admit for Clinical Observation Score 7 - 10: 72.7% MACE over next 6 weeks - Early Invasive Strategies Current Medications: Current Medications Medications (Trade) Dose Ordered Sig/Marga Start Time Stop Time Status Last Admin Dose Admin Fentanyl Citrate (Fentanyl 2ml Vial) 50 mcg 1X ONCE 10/28/20 23:45 10/28/20 23:46 DC Allergies: Allergies: Allergies Coded Allergies Type Severity Reaction Last Updated Verified Sulfa (Sulfonamide Antibiotics) Allergy Intermediate 03/05/20 Yes baclofen Allergy Intermediate 03/05/20 Yes morphine Allergy Intermediate 03/05/20 Yes Physical Exam: PE: Constitutional: Well developed, well nourished, no acute distress, non-toxic appearance. [] HENT: Normocephalic, atraumatic, bilateral external ears normal, oropharynx moist, no oral exudates, nose normal. [] Eyes: PERRLA, EOMI, conjunctiva normal, no discharge. [] Neck: Normal range of motion, no tenderness, supple, no stridor. [] Cardiovascular:Heart rate regular rhythm, no murmur [] Lungs & Thorax: Bilateral breath sounds clear to auscultation [] Abdomen: Bowel sounds normal, soft, no tenderness, no masses, no pulsatile masses. [] Skin: Warm, dry, no erythema, no rash. [] Back: No tenderness, no CVA tenderness. [] Extremities: No tenderness, no cyanosis, no clubbing, ROM intact, no edema. [] Neurologic: Alert and oriented X 3, normal motor function, normal sensory function, no focal deficits noted. [] Psychologic: Affect normal, judgement normal, mood normal. [] Current Patient Data: Vital Signs: Vital Signs Date Time Temp Pulse Resp B/P (MAP) Pulse Ox O2 Delivery O2 Flow Rate FiO2 10/28/20 22:10 98.0 69 16 147/65 (92) 97 Room Air 98.0 EKG: EKG: [] Radiology/Procedures: Radiology/Procedures: [] Course & Med Decision Making: Course & Med Decision Making Pertinent Labs and Imaging studies reviewed. (See chart for details) [] Dragon Disclaimer: DragTepha Disclaimer: This electronic medical record was generated, in whole or in part, using a voice recognition dictation system. Departure Departure Impression: Primary Impression: Right forearm pain Additional Impressions: Right hip pain Left against medical advice Disposition: LEFT AGAINST MEDICAL ADVICE Condition: STABLE Referrals: MACO SANTIAGO DO (PCP) HAYDE RICE DO Patient Instructions: Discharge Against Medical Advice Additional Instructions: You have elected to leave against medical advice by refusing imaging ordered in the Emergency Department. Therefore we have been unable to fully assess your pain. Please follow with your doctor for further evaluation. PREM SINGLETON DO Oct 29, 2020 00:04
[2020-10-29 00:45] VITALS: BP 139/63
== END 2020-10-29 01:49 | disposition left against medical advice (07) ==
LOC: ER 22:10
DX: M79.631 Pain in right forearm (principal); M25.551 Pain in right hip; N19 Unspecified kidney failure; I10 Essential (primary) hypertension; Z86.73 Personal history of transient ischemic attack (TIA), and cerebral infarction without residual deficits; Z88.2 Allergy status to sulfonamides; Z88.5 Allergy status to narcotic agent; Z88.1 Allergy status to other antibiotic agents
CPT/HCPCS: 99285